=== PATIENT | female | born 1965 ===

== ENCOUNTER 2024-12-03 12:34 | Inpatient (IN) | payer OTHER ==
[~2024-12-03] VITALS: Ht 152.4 cm; Wt 69.9 kg
[2024-12-03] MEDS ORDERED: PAXIL40 MG PO (14:04)
[2024-12-03] MEDS ORDERED: COZAAR50 MG PO (14:04)
[2024-12-09] MEDS ORDERED: CEFTRIAXONE SODIUM 2,000 MG VIAL ONE (11:58)
[2024-12-09] MEDS ORDERED: METRONIDAZOLE/SODIUM CHLORIDE 500 MG/100 ML PIGGYBACK IV ONE (11:58)
[2024-12-09] MEDS ORDERED: POVIDONE-IODINE 118 ML BOTT TOP ONE (12:49)
[2024-12-09] MEDS ORDERED: LIDOCAINE HCL 1%/EPINEPHRINE 20ML VIAL IJ ONE (12:49)
[2024-12-09] MEDS ORDERED: BUPIVACAINE HCL/MPF 0.5% 30ML VIAL ONE (12:49)
[2024-12-09] MEDS ORDERED: SUGAMMADEX SODIUM 200 MG/2 ML VIAL IV ONE (16:47)
[2024-12-09] MEDS ORDERED: MORPHINE SULFATE 4 MG/ML CARTRIDGE IV PRN (17:30)
[2024-12-09] MEDS ORDERED: ONDANSETRON HCL 2 MG/ML VIAL IV PRN (17:30)
[2024-12-09] MEDS ORDERED: RINGERS SOLUTION,LACTATED 1,000 ML IV SCH (17:30)
[2024-12-09] MEDS ORDERED: DEXTROSE 50 % IN WATER 0.5 G/ML VIAL IV PRN (17:30)
[2024-12-09] MEDS ORDERED: OxyCODONE HCL 5 MG TABLET (ROXICODONE) PO PRN (17:30)
[2024-12-09] MEDS ORDERED: MORPHINE SULFATE 4 MG/ML VIAL IV ONE ×2 (17:40→19:55)
[2024-12-09] MEDS ORDERED: FAMOTIDINE/PF 20 MG/2 ML VIAL ONE (19:53)
[2024-12-09 20:00] VITALS: BP 160/77; O2SAT 99
[2024-12-09] MEDS ORDERED: ACETAMINOPHEN 500 MG GEL..CAP PO SCH (20:00)
[2024-12-09] MEDS ORDERED: CELECOXIB 200 MG CAPSULE PO SCH (21:00)
[2024-12-09] MEDS ORDERED: FAMOTIDINE/PF 20 MG/2 ML VIAL IV PUSH SCH (21:00)
[2024-12-10 00:42] VITALS: BP 166/92; O2SAT 100
[2024-12-10] MEDS ORDERED: ENALAPRILAT DIHYDRATE 1.25 MG/ML VIAL IV PRN (06:30)
[2024-12-10 08:00] LABS: BASO % 0.2 % (0.1-1.2); HEMATOCRIT 36.4 % (34.1-44.9); HEMOGLOBIN 12.4 g/dL (11.2-15.7); LYMPH # 1.79 (1.18-3.74); LYMPH % 20.4 % (19.3-53.1); MEAN CORPUSCULAR HEMOGLOBIN 28.4 pg (25.6-32.2); MONO # 0.75 (0.24-0.82); MONO % 8.6 % (4.7-12.5); NEUT # 6.18 (1.56-6.13); NEUT % 70.6 % (34.0-71.1); PLATELET COUNT 255 K/uL (163-369); RED BLOOD COUNT 4.36 M/uL (3.93-5.22); RED CELL DISTRIBUTION WIDTH 12.4 % (11.6-14.4)
[2024-12-10 08:13] LABS: ALBUMIN 2.9 gm/dL (3.4-5.0); CALCIUM 8.4 mg/dL (8.5-10.1); CREATININE SERUM 0.71 mg/dL (0.55-1.02); GFR 83.97; POTASSIUM 3.76 mEq/L (3.5-5.1)
[2024-12-10 08:52] VITALS: BP 147/81; O2SAT 100
[2024-12-10] MEDS ORDERED: PAROXETINE HCL 20 MG TABLET PO SCH (09:00)
[2024-12-10] MEDS ORDERED: LOSARTAN POTASSIUM 50 MG TABLET PO SCH (09:00)
[2024-12-10] MEDS ORDERED: LACTOBACILLUS ACIDOPHILUS 1 CAP CAP PO SCH (09:00)
[2024-12-10] MEDS ORDERED: HYOSCYAMINE SULFATE 0.125 MG TAB.SUBL SL SCH (09:00)
[2024-12-10] MEDS ORDERED: ENOXAPARIN SODIUM 40 MG/0.4 ML SYRINGE SUBCUTANEO SCH (17:00)
[2024-12-11 00:56] VITALS: BP 115/62; O2SAT 100
[2024-12-11 06:20] LABS: BASO % 0.1 % (0.1-1.2); EOS # 0.01 (0.04-0.54); EOS % 0.1 % (0.7-7.0); HEMATOCRIT 38.2 % (34.1-44.9); HEMOGLOBIN 12.8 g/dL (11.2-15.7); LYMPH # 3.07 (1.18-3.74); LYMPH % 37.9 % (19.3-53.1); MEAN CORPUSCULAR HEMOGLOBIN 28.9 pg (25.6-32.2); MONO # 0.48 (0.24-0.82); MONO % 5.9 % (4.7-12.5); NEUT % 55.8 % (34.0-71.1); PLATELET COUNT 262 K/uL (163-369); RED BLOOD COUNT 4.43 M/uL (3.93-5.22); RED CELL DISTRIBUTION WIDTH 12.8 % (11.6-14.4)
[2024-12-11 08:39] LABS: CREATININE SERUM 0.64 mg/dL (0.55-1.02); GFR 94.65; MAGNESIUM 2.1 mg/dL (1.8-2.4); PHOSPHOROUS 2.8 mg/dL (2.5-4.9)
[2024-12-11 08:44] VITALS: BP 150/79; O2SAT 98
[2024-12-11] MEDS ORDERED: ENOXAPARIN SODIUM 40 MG/0.4 ML SYRINGE SUBCUTANEO SCH (09:00)
[2024-12-11] MEDS ORDERED: CELECOXIB200 MG PO (11:44)
[2024-12-11] MEDS ORDERED: INTESTINEX680 M1 PO (11:45)
[2024-12-11 12:20] LABS: POTASSIUM 4.04 mEq/L (3.5-5.1)
== END 2024-12-11 15:46 | disposition home or self-care (01) | DRG 330 ==
LOC: O/R 12-09 04:46 → SURH 12-09 07:00
PROVIDERS: Internal Medicine Geriatric Medicine; ADMIT Surgery; ATTEND Surgery
PROC: 0DNW4ZZ Release Peritoneum, Percutaneous Endoscopic Approach (ICD-10-PCS; 2024-12-09)
PROC: 0DN84ZZ Release Small Intestine, Percutaneous Endoscopic Approach (ICD-10-PCS; 2024-12-09)
PROC: 0DNU4ZZ Release Omentum, Percutaneous Endoscopic Approach (ICD-10-PCS; 2024-12-09)
PROC: 8E0W4CZ Robotic Assisted Procedure of Trunk Region, Percutaneous Endoscopic Approach (ICD-10-PCS; 2024-12-09)
PROC: 0DJD8ZZ Inspection of Lower Intestinal Tract, Via Natural or Artificial Opening Endoscopic (ICD-10-PCS; 2024-12-09)
PROC: 0DQE4ZZ Repair Large Intestine, Percutaneous Endoscopic Approach (ICD-10-PCS; principal; 2024-12-09 07:00)
DX: K66.0 Peritoneal adhesions (postprocedural) (postinfection) (principal); K91.71 Accidental puncture and laceration of a digestive system organ or structure during a digestive system procedure; N82.3 Fistula of vagina to large intestine; K57.30 Diverticulosis of large intestine without perforation or abscess without bleeding; K46.9 Unspecified abdominal hernia without obstruction or gangrene
CPT/HCPCS: 44604; 44180; 45330; S2900